=== PATIENT | female | born 1950 | race Caucasian/White ===

== ENCOUNTER 2017-02-02 18:16 | Emergency (ER) | payer MEDICARE ==
[~2017-02-02] VITALS: Ht 162.6 cm; Wt 70.3 kg
[2017-02-02 18:16] VITALS: BP_SYST 130
[2017-02-02] MEDS ORDERED: KETOROLAC TROMETHAMINE 60 MG/2 ML VIAL IM ONE (20:15)
[2017-02-02 20:56] LABS: BILIRUBIN,URINE NEGATIVE (NEGATIVE); BLOOD, URINE 2+ (NEGATIVE); CLARITY/URINE CLEAR (CLEAR); COLOR,URINE YELLOW (YELLOW); GLUCOSE,URINE NEGATIVE (NEGATIVE); KETONES,URINE NEGATIVE (NEGATIVE); LEUKOCYTE ESTERASE ,URINE TRACE (NEGATIVE); NITRITE, URINE NEGATIVE (NEGATIVE); PROTEIN URINE NEGATIVE (NEGATIVE); UROBILINOGEN,URINE 0.2 (0.2-1.0)
[2017-02-02 21:17] LABS: BACTERIA,URINE RARE /HPF (None Seen)
[2017-02-02 21:18] LABS: URIC ACID CRYSTALS,URINE 0-10 /HPF (None Seen)
[2017-02-02 21:38] VITALS: BP_SYST 130
== END 2017-02-02 21:38 | disposition home or self-care (01) ==
LOC: SED 18:16
DX: N39.0 Urinary tract infection, site not specified (principal); M79.672 Pain in left foot; I10 Essential (primary) hypertension; Z86.718 Personal history of other venous thrombosis and embolism; Z88.0 Allergy status to penicillin
CPT/HCPCS: 81000; 87086; 96372; 99284; J1885

== ENCOUNTER 2017-04-13 19:49 | Emergency (ER) | payer MEDICARE ==
[~2017-04-13] VITALS: Ht 149.9 cm; Wt 69.4 kg
[2017-04-13 19:53] VITALS: BP_SYST 120
--- NOTE | 2017-04-13 20:21 | NUR ---
Placed in room 01 . Placed on evp, blood pressure machine and pulse oximeter. To gown for exam. Side rails up.Report given to MARIVEL Ricketts and MARIVEL Lantigua.
--- NOTE | 2017-04-13 20:35 | NUR ---
Pt AAOx4, ambulatory to ER bed 1. Pt is primarily chinese speaking, son is at bedside. Pt c/o 9/10 throat pain and dry cough for 10 days. Pt also states she has ringing in her L ear, and has had weakness and dizziness. Pt denies any abd pain, nausea, and vomittng. VSS, will continue to monitor.
--- NOTE | 2017-04-13 20:42 | NUR ---
ER at bedside examining patient.
[2017-04-13] MEDS ORDERED: ALBUTEROL SULFATE 0.083% 2.5 MG/3 ML VIAL.NEB IH ONE (20:45)
[2017-04-13] MEDS ORDERED: IPRATROPIUM BROM 0.5 MG/2.5 ML VIAL.NEB (ATROVENT) IH ONE (20:45)
[2017-04-13] MEDS ORDERED: methylPREDNISolone SOD SUCC/PF 62.5 MG/ML VIAL IVP ONE (20:45)
--- NOTE | 2017-04-13 21:04 | NUR ---
# 20 gauge angiocath placed to RFA. Use of asceptic technique. Opsite placed over site. Blood return noted. Blood for lab drawn from site. Flushed with 10 cc of normal saline. No evidence of infiltration noted. Patient tolerated well.
[2017-04-13 21:10] LABS: BASOPHILS % (AUTO) 0.4 % (0.0-2.0); EOSINOPHILS # (AUTO) 0.2 K/uL (0.0-0.4); EOSINOPHILS % (AUTO) 2.1 % (0.0-4.0); HEMATOCRIT 35.6 % (36-48); LYMPHOCYTES # (AUTO) 3.9 K/uL (1.0-5.5); LYMPHOCYTES % (AUTO) 39.6 % (20.5-51.5); MEAN CORPUSCULAR HEMOGLOBIN 31 pg (27-31); MEAN CORPUSCULAR HGB CONC 34 % (32-36); MEAN CORPUSCULAR VOLUME 92 fL (79.0-98.0); MONOCYTES # (AUTO) 0.6 K/uL (0.0-1.0); MONOCYTES % (AUTO) 6.2 % (1.7-9.3); NEUTROPHILS # (AUTO) 5.1 K/uL (1.8-7.7); NEUTROPHILS % (AUTO) 51.7 % (40.0-70.0); PLATELET COUNT (AUTO) 242 K/uL (130-430); RED BLOOD CELL COUNT(AUTO) 3.89 MIL/uL (4.2-6.2); RED CELL DISTRIBUTION WIDTH 13.3 % (9.0-15.0); WHITE BLOOD COUNT (AUTO) 9.8 K/uL (4.8-10.8)
[2017-04-13 21:15] LABS: CALCIUM 8.9 mg/dL (8.4-11.0); CREATININE 0.9 mg/dL (0.55-1.30); POTASSIUM 3.4 mmol/L (3.5-5.1)
[2017-04-13 21:21] LABS: ALBUMIN 3.1 g/dL (3.4-4.8); TOTAL BILIRUBIN 0.2 mg/dL (0.0-1.0)
[2017-04-13 21:38] LABS: BILIRUBIN,URINE NEGATIVE (NEGATIVE); BLOOD, URINE 3+ (NEGATIVE); CLARITY/URINE CLEAR (CLEAR); COLOR,URINE YELLOW (YELLOW); GLUCOSE,URINE NEGATIVE (NEGATIVE); KETONES,URINE NEGATIVE (NEGATIVE); LEUKOCYTE ESTERASE ,URINE NEGATIVE (NEGATIVE); NITRITE, URINE NEGATIVE (NEGATIVE); PH,URINE 5.5 (5.0-8.0); PROTEIN URINE NEGATIVE (NEGATIVE); UROBILINOGEN,URINE 0.2 (0.2-1.0)
[2017-04-13 22:00] LABS: BACTERIA,URINE FEW /HPF (None Seen); MUCUS,URINE 1+ /LPF (None Seen); WBC,URINE 0-3 /HPF (0-3)
--- NOTE | 2017-04-13 22:21 | NUR ---
Pt resting comfortably in bed. Rise and fall of chest noted. VSS, no signs of distress noted. Will continue to monitor.
[2017-04-13 22:45] VITALS: BP_SYST 122
--- NOTE | 2017-04-13 22:45 | NUR ---
Patient given written and verbal discharge instructions and verbalizes understanding. ER MD discussed with patient the results and treatment provided. Patient in stable condition. ID arm band removed. IV catheter removed intact and dressing applied, no active bleeding. Rx of Robitussin, Zithromax, and Ativan given. Patient educated on pain management and to follow up with PMD. Pain Scale 0/10. Opportunity for questions provided and answered.
== END 2017-04-13 22:45 | disposition home or self-care (01) ==
LOC: SED 19:49
DX: J20.9 Acute bronchitis, unspecified (principal); N30.90 Cystitis, unspecified without hematuria; F43.20 Adjustment disorder, unspecified; I10 Essential (primary) hypertension; Z88.0 Allergy status to penicillin; Z86.718 Personal history of other venous thrombosis and embolism
CPT/HCPCS: 36415; 71045; 80053; 81000; 85025; 86710; 94640; 96374; 99285; J2930

== ENCOUNTER 2019-01-07 16:45 | Emergency (ER) | payer BC, MEDICARE ==
[~2019-01-07] VITALS: Ht 157.5 cm; Wt 83.9 kg
[2019-01-07 16:50] VITALS: BP_SYST 154
--- NOTE | 2019-01-07 16:50 | NUR ---
Patient to ER bed 2 to gown for evaluation. Side rails up. Report given to Kleber ORTA.
--- NOTE | 2019-01-07 16:53 | NUR ---
Patient brought in by EMS. Patient is awake, alert, and oriented x4. Patient is complaining of cold symptoms x3 days.
--- NOTE | 2019-01-07 16:55 | NUR ---
ER Dr. Greenwood at bedside examining patient.
[2019-01-07] MEDS ORDERED: ACETAMINOPHEN WITH CODEINE 12.5 ML UDC PO ONE (17:15)
[2019-01-07] MEDS ORDERED: NACL 0.9% 1,000 ML IV ONE (17:15)
[2019-01-07 17:52] LABS: BASOPHILS # (AUTO) 0.1 K/uL (0.0-0.2); BASOPHILS % (AUTO) 0.6 % (0.0-2.0); EOSINOPHILS # (AUTO) 0.1 K/uL (0.0-0.4); EOSINOPHILS % (AUTO) 0.6 % (0.0-4.0); HEMATOCRIT 38.2 % (36-48); HEMOGLOBIN 12.9 g/dL (12.0-16.0); LYMPHOCYTES # (AUTO) 3.7 K/uL (1.0-5.5); LYMPHOCYTES % (AUTO) 39.4 % (20.5-51.5); MEAN CORPUSCULAR HEMOGLOBIN 31 pg (27-31); MEAN CORPUSCULAR HGB CONC 34 % (32-36); MEAN CORPUSCULAR VOLUME 91 fL (79.0-98.0); MONOCYTES # (AUTO) 0.6 K/uL (0.0-1.0); MONOCYTES % (AUTO) 5.9 % (1.7-9.3); NEUTROPHILS % (AUTO) 53.5 % (40.0-70.0); PLATELET COUNT (AUTO) 273 K/uL (130-430); RED BLOOD CELL COUNT(AUTO) 4.18 MIL/uL (4.2-6.2); RED CELL DISTRIBUTION WIDTH 14.5 % (9.0-15.0); WHITE BLOOD COUNT (AUTO) 9.4 K/uL (4.8-10.8)
[2019-01-07 18:03] LABS: CALCIUM 9.4 mg/dL (8.4-11.0); CREATININE 0.68 mg/dL (0.55-1.30); POTASSIUM 3.7 mmol/L (3.5-5.1)
[2019-01-07 18:09] LABS: ALBUMIN 3.9 g/dL (3.4-4.8); TOTAL BILIRUBIN 0.3 mg/dL (0.0-1.0)
[2019-01-07] MEDS ORDERED: LEVOFLOXACIN 500 MG/D5W 100 ML IV ONE (18:15)
[2019-01-07] MEDS ORDERED: methylPREDNISolone SOD SUCC/PF 62.5 MG/ML VIAL IVP ONE (18:15)
[2019-01-07 19:27] VITALS: BP_SYST 138
--- NOTE | 2019-01-07 19:29 | NUR ---
Patient given written and verbal discharge instructions and verbalizes understanding. ER MD discussed with patient the results and treatment provided. Patient in stable condition. ID arm band removed. IV catheter removed intact and dressing applied, no active bleeding. Rx of Levaquin and Tessalon given. Patient educated on pain management and to follow up with PMD. Pain Scale 0. Opportunity for questions provided and answered. Medication side effect fact sheet provided.
== END 2019-01-07 19:29 | disposition home or self-care (01) ==
LOC: SED 16:45
DX: J20.9 Acute bronchitis, unspecified (principal); I10 Essential (primary) hypertension; Z88.0 Allergy status to penicillin
CPT/HCPCS: 36415; 71045; 80053; 85025; 87040; 96365; 96375; 99284; J1956; J2930; J7030